=== PATIENT | male | born 1990 | race Caucasian/White ===

== ENCOUNTER 2025-06-26 10:44 | Inpatient (IN) | payer MEDICAID, SELFPAY ==
[2025-06-26] VITALS (26 sets, daily range): BP systolic 115–146; BP diastolic 65–90; PULSE 53–95; RESP 14–41; TEMP 36.1–36.3; O2SAT 93–98; BMI 33.7; BMI 39.0
--- NOTE | ~2025-06-26 | CT_ITS ---
EXAMINATION: CT HEAD WITHOUT CONTRAST CLINICAL INFORMATION: Altered mental status. COMPARISON: None available. TECHNIQUE: Contiguous axial imaging was performed from the skull base to vertex without intravenous administration of contrast. This CT examination was performed using dose optimization techniques as appropriate, variously including the following: *Automated exposure control *Adjustment of mA and/or kV according to patient size (this includes techniques or standardized protocols for targeted exams where dose is matched to indication/reason for exam; i.e. extremities or head) *Use of iterative reconstruction technique FINDINGS: There is no evidence of intracranial hemorrhage or extra-axial fluid collection. There is no mass effect, or edema. No CT evidence of acute territorial infarct. Ventricles, sulci, and cisterns are normal in size and configuration for patient age. No hydrocephalus. No midline shift. Negative hyperdense MCA sign. Negative insular ribbon sign. There are no white matter abnormalities. Globes and orbital contents image normally. No extracranial soft tissue abnormalities. The paranasal sinuses, mastoid air cells, and tympanic cavities are normally aerated. No suspicious bony abnormalities. There are no acute fractures evident. CT/CT head/brain wo IV con IMPRESSION: No acute intracranial abnormality. Electronically signed by: Jay Shaffer MD 06/26/2025 02:41 PM EDT
--- NOTE | 2025-06-26 10:54 | ECG_ITS ---
Test Reason : od Blood Pressure : */* mmHG Vent. Rate : 89 BPM Atrial Rate : 89 BPM P-R Int : 120 ms QRS Dur : 72 ms QT Int : 364 ms P-R-T Axes : 45 72 47 degrees QTcB Int : 442 ms Sinus rhythm with occasional Premature ventricular complexes Nonspecific ST abnormality Abnormal ECG No previous ECGs available Referred By: Riya Still Electronically Signed By: KHARI QUEZADA MD
[2025-06-26] MEDS: OLANZapine 10 MG VIAL IM (10:57)
--- NOTE | 2025-06-26 11:04 | ED.AMS ---
HPI - Altered Mental Status General Chief Complaint: Psychiatric Symptoms Stated Complaint: PSYCH ISSUE,USED NARCS,ERRATIC/AGGRESSIVE PER EMS Time Seen by Provider: 06/26/25 10:48 Source: EMS and police Mode of arrival: EMS Limitations: altered mental status History of Present Illness ED Provider: JUAN AVALOS narrative: Unclear history a bystander saw him acting erratic walking around they called 911 - patient was initially calm then became agitated en route [employer] on scene. He is not providing a history but fighting and screaming. He will not answer questions. There is no obvious trauma on chest /abdomen/ head review of [facility] records show hx of depression, bronchitis, prior hernia repair he has not been seen for any substance abuse issues MD complaint: altered mental status Onset (ago): unknown Severity: severe Consistency of symptoms: unknown Associated symptoms: denies other symptoms Related Data Allergies Allergy/AdvReac Type Severity Reaction Status Date / Time Unable to Assess Allergy Verified 06/26/25 11:15 Review of Systems Review of Systems: ROS unable to be obtained due to altered mental status PMFSH Past Medical History Source: unable to obtain (AMS, agitation) Physical Exam ED Vital Signs: Vital Signs - 24 hr 06/26/25 11:11 06/26/25 14:40 Pulse Rate 93 76 Respiratory Rate 22 H 19 Blood Pressure 124/90 H 132/80 Pulse Oximetry 96 96 Oxygen Delivery Method Room Air Room Air BMI result Body Mass Index 33.7 Appearance: alert not answering questions, yellow out, moderate acute distress. Eyes: Pupils equal, round and reactive to light. ENT: Pharynx normal. atraumatic Neck: Normal inspection. Neck supple. CVS: tachycardic heart rate and rhythm. Pulses normal. Respiratory: Rapid shallow breathing. Breath sounds normal. Abdomen: Soft and nontender. no obvious signs of trauma to chest or abdomen Skin: Skin warm and diaphoretic. Normal skin color. Extremities: No lower extremity edema. No calf ttp Neuro: yelling, moving all extremities, withdrawal and localizing to pain. Course Course Course Narrative: still awake after 7mg versed, 50mg benadryl, 10mg zyprexa he is still awake and fighting I am going to add on droperidol more versed unable to get head CT IV valium ordered attempted to call Saskia listed as next of kin but no response I need a head CT will order IV ketamine as well to obtain imaging and rule out ICH as cause Reevaluation(s) Reevaluation #1: 215pm calm now and sleeping, breathing pattern has changed after IV valium and IV ketamine more calm and cooperative has been out of restraints for an hour 312pm Reevaluation #2: 448pm calm responds to his name when I told him what happened he said okay stable for admit Medications Administered Generic Name Dose Route Start Last Admin Trade Name Freq PRN Reason Stop Dose Admin Sodium Chloride 1,000 mls @ 200 mls/hr 06/26/25 14:00 06/26/25 14:58 Ns IVCONT 06/26/25 18:59 200 mls/hr .Q5H KWABENA Administration Discontinued Medications Generic Name Dose Route Start Last Admin Trade Name Freq PRN Reason Stop Dose Admin Diazepam 5 mg 06/26/25 13:41 06/26/25 13:52 Diazepam 10 Mg/2 Ml Cartridge IVPUSH 06/26/25 13:42 5 mg STAT STA Administration Diphenhydramine HCl 50 mg 06/26/25 11:04 06/26/25 11:05 Diphenhydramine Hcl 50 Mg/Ml Vial IM 06/26/25 11:05 50 mg ONCE ONE Administration Droperidol 1.25 mg 06/26/25 12:06 06/26/25 12:21 Droperidol 5 Mg/2 Ml Vial IVPUSH 06/26/25 12:07 1.25 mg ONCE ONE Administration Lactated Ringer's 1,000 mls @ 999 mls/hr 06/26/25 12:08 06/26/25 13:23 Lr IV 06/26/25 13:08 Infused .Q1H1M ONE Infusion Sodium Chloride 1,000 mls @ 999 mls/hr 06/26/25 13:58 06/26/25 14:58 Ns IV 06/26/25 14:58 999 mls/hr .Q1H1M ONE Administration Ketamine HCl 90 mg 06/26/25 13:46 06/26/25 13:52 Ketamine Hcl/Ns 50 Mg/5 Ml Syringe IVPUSH 06/26/25 13:47 90 mg ONCE ONE Administration Midazolam HCl 5 mg 06/26/25 10:52 06/26/25 10:57 Midazolam Hcl 5 Mg/Ml Vial IM 06/26/25 10:53 5 mg ONCE ONE Administration Midazolam HCl 2 mg 06/26/25 11:36 06/26/25 11:41 Midazolam Hcl 2 Mg/2 Ml Vial IVPUSH 06/26/25 11:37 2 mg ONCE ONE Administration Midazolam HCl 4 mg 06/26/25 12:58 06/26/25 13:06 Midazolam Hcl 2 Mg/2 Ml Vial IVPUSH 06/26/25 12:59 4 mg ONCE ONE Administration Olanzapine 10 mg 06/26/25 10:52 06/26/25 10:57 Olanzapine 10 Mg Vial IM 06/26/25 10:53 10 mg STAT STA Administration Medical Decision Making Medical Decision Making MDM Narrative: 35 yo male with undifferentiated presentation of agitation and aggression on arrival he is fighting and screaming attempting to leave for his and staff safety he had chemical and physical restraints he is going to need labs, EKG, CT head, drug screen and close monitoring will escalate sedation doses Differential Diagnosis Differential Diagnoses: The differential diagnosis associated with the presentation includes ICH, drug abuse, lyte abnormality given breathing we checked BS but it is 72 - DKA seems unlikely Admission/Observation Consideration of admission/observation: Escalation of care including admission/observation considered admit for rhabdo Lab Data [facility] Lab Attestation statement: I reviewed the patient's lab results. VBG improved 06/26/25 11:38 06/26/25 11:38 Labs: Lab Results 06/26/25 06/26/25 06/26/25 Range/Units 11:15 11:38 12:17 WBC 13.6 H (4.8-10.8) X10*3/uL RBC 4.33 L (4.60-5.80) X10*6/uL Hgb 12.8 L (14.0-18.0) g/dl Hct 37.3 L (42.0-52.0) % MCV 86.1 (80.0-98.0) fL MCH 29.6 (27.0-33.0) pg MCHC 34.3 (31.0-36.0) g/dl RDW 15.1 (11.0-16.0) % Plt Count 286 (160-400) X10*3/uL MPV 10.3 (9.4-12.4) fL Immature Gran % (Auto) 0.4 (0.0-0.4) % Neut % (Auto) 62.5 (45-73) % Lymph % (Auto) 23.1 (20-40) % [place] % (Auto) 13.0 H (2-11) % Eos % (Auto) 0.3 (0-4) % Baso % (Auto) 0.7 (0-2) % Lymph # (Auto) 3.1 (1.2-4.9) X10*3/uL [place] # (Auto) 1.8 H (0.1-1.2) X10*3/uL Eos # (Auto) 0.0 (0.0-0.4) X10*3/uL Baso # (Auto) 0.1 (0.0-0.2) X10*3/uL Abs Immat Gran (auto) 0.06 H (0.00-0.03) X10*3/uL Absolute Neuts (auto) 8.5 H (2.0-8.3) x10*3/uL Absolute Nucleated RBC 0.000 (0.0-0.012) X10*3/uL Nucleated RBC % (auto) 0.0 (0.0-0.2) /100WBC Smear Tech's Comments VERIFIED VBG pH 7.60 H* (7.32-7.43) VBG pCO2 20 mmHg VBG pO2 97 mmHg VBG HCO3 20 L (22-26) mmol/L VBG O2 Saturation 99.0 % VBG Base Excess 1.2 mmol/L Sodium 139 (135-145) mmol/L Potassium 4.0 (3.3-5.1) mmol/L Chloride 109 H (96-108) mmol/L Carbon Dioxide 17 L (22-29) mmol/L Anion Gap 17 (12-20) BUN 26 H (9-16) mg/dL Creatinine 0.92 (0.5-1.4) mg/dL Estim Creat Clear Calc 122.3 Estimated GFR > 60 POC Glucose 72 (60-115) mg/dL Random Glucose 75 (60-115) mg/dL Calcium 9.3 (8.4-10.2) mg/dL Magnesium 2.4 (1.6-2.6) mg/dL Total Bilirubin 0.7 (0.0-1.0) mg/dL Direct Bilirubin 0.3 (0.0-0.5) mg/dL AST 177 H (5-37) U/L ALT 127 H (0-40) U/L Alkaline Phosphatase 80 (39-117) U/L Total Creatine Kinase 9536 H (38-174) U/L Total Protein 7.7 (6.5-8.0) g/dL Albumin 4.7 (3.5-5.0) g/dL Urine Color Urine Appearance Urine pH (5.0-9.0) Ur Specific [place] (1.005-1.025) Urine Protein (Neg-Trace) mg/dL Urine Glucose (UA) (Negative) mg/dL Urine Ketones (Negative) mg/dL Urine Blood (Negative) Urine Nitrite (Negative) Ur Leukocyte Esterase (Negative) Urine RBC (0-2) /HPF Urine WBC (0-5) /HPF Ur Squamous Epith Cells (0-2) /HPF Urine Bacteria (None Seen) Hyaline Casts (0-2) /LPF Salicylates < 5.0 L (15-30) mg/dL Urine Opiates Screen (Not Detect) Ur Buprenorphine Scrn (Not Detect) ng/mL Ur Oxycodone Screen (Not Detect) ng/mL Urine Methadone Screen (Not Detect) ng/mL Urine Fentanyl Screen (Not Detect) Acetaminophen < 3 (<30) mcg/mL Ur Barbiturates Screen (Not Detect) Ur Phencyclidine Scrn (Not Detect) Ur Amphetamines Screen (Not Detect) U Benzodiazepines Scrn (Not Detect) Urine Cocaine Screen (Not Detect) U Marijuana (THC) Screen (Not Detect) Ethyl Alcohol < 10 mg/dL 06/26/25 06/26/25 06/26/25 Range/Units 14:32 14:39 14:59 WBC (4.8-10.8) X10*3/uL RBC (4.60-5.80) X10*6/uL Hgb (14.0-18.0) g/dl Hct (42.0-52.0) % MCV (80.0-98.0) fL MCH (27.0-33.0) pg MCHC (31.0-36.0) g/dl RDW (11.0-16.0) % Plt Count (160-400) X10*3/uL MPV (9.4-12.4) fL Immature Gran % (Auto) (0.0-0.4) % Neut % (Auto) (45-73) % Lymph % (Auto) (20-40) % [place] % (Auto) (2-11) % Eos % (Auto) (0-4) % Baso % (Auto) (0-2) % Lymph # (Auto) (1.2-4.9) X10*3/uL [place] # (Auto) (0.1-1.2) X10*3/uL Eos # (Auto) (0.0-0.4) X10*3/uL Baso # (Auto) (0.0-0.2) X10*3/uL Abs Immat Gran (auto) (0.00-0.03) X10*3/uL Absolute Neuts (auto) (2.0-8.3) x10*3/uL Absolute Nucleated RBC (0.0-0.012) X10*3/uL Nucleated RBC % (auto) (0.0-0.2) /100WBC Smear Tech's Comments VBG pH 7.47 H (7.32-7.43) VBG pCO2 29 mmHg VBG pO2 190 mmHg VBG HCO3 21 L (22-26) mmol/L VBG O2 Saturation 99.0 % VBG Base Excess -0.6 mmol/L Sodium (135-145) mmol/L Potassium (3.3-5.1) mmol/L Chloride (96-108) mmol/L Carbon Dioxide (22-29) mmol/L Anion Gap (12-20) BUN (9-16) mg/dL Creatinine (0.5-1.4) mg/dL Estim Creat Clear Calc Estimated GFR POC Glucose (60-115) mg/dL Random Glucose (60-115) mg/dL Calcium (8.4-10.2) mg/dL Magnesium (1.6-2.6) mg/dL Total Bilirubin (0.0-1.0) mg/dL Direct Bilirubin (0.0-0.5) mg/dL AST (5-37) U/L ALT (0-40) U/L Alkaline Phosphatase (39-117) U/L Total Creatine Kinase (38-174) U/L Total Protein (6.5-8.0) g/dL Albumin (3.5-5.0) g/dL Urine Color Yellow Urine Appearance Clear Urine pH 5.5 (5.0-9.0) Ur Specific [place] >= 1.030 H (1.005-1.025) Urine Protein 30 (1+) H (Neg-Trace) mg/dL Urine Glucose (UA) Negative (Negative) mg/dL Urine Ketones 15 (Negative) mg/dL Urine Blood Trace H (Negative) Urine Nitrite Negative (Negative) Ur Leukocyte Esterase Negative (Negative) Urine RBC 0-2 (0-2) /HPF Urine WBC 0-5 (0-5) /HPF Ur Squamous Epith Cells 0-2 (0-2) /HPF Urine Bacteria None Seen (None Seen) Hyaline Casts 0-2 (0-2) /LPF Salicylates (15-30) mg/dL Urine Opiates Screen POSITIVE H (Not Detect) Ur Buprenorphine Scrn Not Detected (Not Detect) ng/mL Ur Oxycodone Screen Not Detected (Not Detect) ng/mL Urine Methadone Screen Positive H (Not Detect) ng/mL Urine Fentanyl Screen POSITIVE H (Not Detect) Acetaminophen (<30) mcg/mL Ur Barbiturates Screen Not Detected (Not Detect) Ur Phencyclidine Scrn Not Detected (Not Detect) Ur Amphetamines Screen Not Detected (Not Detect) U Benzodiazepines Scrn POSITIVE H (Not Detect) Urine Cocaine Screen POSITIVE H (Not Detect) U Marijuana (THC) Screen POSITIVE H (Not Detect) Ethyl Alcohol mg/dL Independent Interpretation I performed an independent interpretation of an: EKG and CT Scan (no ICH) Interpretation: Rate: 89 Rhythm: NSR [place]: normal Normal P waves. Normal MARK. Normal QRS complex. ST T wave : artifact, normal no FERCHO qTC: 442 prior studies: none The study has been interpreted contemporaneously by me. . Radiology Impression Discussion of test interpretation with radiology: I have reviewed the radiologist's reading. Independent Historian Clinical information obtained from an independent historian. History obtained from or confirmed by: EMS and Other (police) Critical Care Time Critical Care Time Critical Care Time: Yes Total Critical Care Time: 60 Attestation: Time is exclusive of separately billable procedures. Time includes: direct patient care, patient reassessment, coordination of patient care, interpretation of data (laboratory data, pulse oximetry, venous blood gases and CT scans), review of patient's medical records, medical consultation and documentation of patient care. IVF x 2L, repeat labs, numerous IV and IM medications for agitation. Procedures excluded from critical care time: central intravenous line placement and electrocardiography. Discharge Plan Discharge Clinical Impression: Polysubstance abuse, Restlessness and agitation Rhabdomyolysis Qualifiers: Rhabdomyolysis type: non-traumatic Qualified Code(s): M62.82 - Rhabdomyolysis Patient Disposition: Admitted As Inpatient Print Language: Unknown
[2025-06-26 11:20] LABS: Glucose, Whole Blood 72 mg/dL (60-115)
[2025-06-26 11:47] LABS: Hematocrit 37.3 % (42.0-52.0); Hemoglobin 12.8 g/dl (14.0-18.0); Imm Gran Abs Auto 0.06 X10*3/uL (0.00-0.03); Imm Gran Pct Auto 0.4 % (0.0-0.4); Lymphocytes Absolute Auto 3.1 X10*3/uL (1.2-4.9); MANUAL DIFF FLAG SCAN; Mean Corpuscular HGB Conc 34.3 g/dl (31.0-36.0); Mean Corpuscular Hemoglobin 29.6 pg (27.0-33.0); Mean Corpuscular Volume 86.1 fL (80.0-98.0); NRBC Abs Auto 0.000 X10*3/uL (0.0-0.012); NRBC Pct Auto 0.0 /100WBC (0.0-0.2); Platelet Count 286 X10*3/uL (160-400); Red Blood Count 4.33 X10*6/uL (4.60-5.80); SCAN SMEAR FLAG 1; White Blood Count 13.6 X10*3/uL (4.8-10.8)
[2025-06-26 12:04] LABS: Acetaminophen LAB < 3 mcg/mL (<30); Alanine Aminotransferase 127 U/L (0-40); Albumin Level 4.7 g/dL (3.5-5.0); Alkaline Phosphatase 80 U/L (39-117); Anion Gap 17 (12-20); Aspartate Amino Transferase 177 U/L (5-37); Blood Urea Nitrogen 26 mg/dL (9-16); Calcium 9.3 mg/dL (8.4-10.2); Carbon Dioxide 17 mmol/L (22-29); Chloride 109 mmol/L (96-108); Creatinine Clr Calc Pharmacy 122.3; Estimated Glomerular Filt Rate > 60; Magnesium 2.4 mg/dL (1.6-2.6); Potassium 4.0 mmol/L (3.3-5.1); Salicylate < 5.0 mg/dL (15-30); Sodium 139 mmol/L (135-145); Total Protein 7.7 g/dL (6.5-8.0)
[2025-06-26] MEDS: Lactated Ringers 1,000 ML 999 ML IV (12:22)
[2025-06-26 12:31] LABS: Venous Blood Gas Refer to POC result
--- NOTE | 2025-06-26 12:33 | PC.NURSE ---
Moved from 6 [address] to room 6. Placed on continuous cardiac monitoring. Diaphoretic, tachypnic, thrashing. Remains in 4 point restraints and received IM medications (see EMAR). Care ongoing by this RN.
[2025-06-26 12:34] LABS: VBG HCO3 20 mmol/L (22-26); VBG O2 % Saturation 99.0 %
[2025-06-26] MEDS: diazePAM 10 MG/2 ML CARTRIDGE 5 MG IVPUSH (13:52)
[2025-06-26] MEDS: Ketamine HCl/NS 50 MG/5 ML SYRINGE 90 MG IVPUSH (13:52)
[2025-06-26 14:47] LABS: Appearance Urine Clear; Glucose Urine UA Negative (Negative); PH 5.5 (5.0-9.0); Specific Gravity - Urine >= 1.030 (1.005-1.025); UMIC TRIGGER UACC YES
[2025-06-26 15:02] LABS: Venous Blood Gas Refer to POC result
[2025-06-26 15:03] LABS: VBG HCO3 21 mmol/L (22-26); VBG O2 % Saturation 99.0 %
[2025-06-26 15:07] LABS: Cannabinoid Screen Urine POSITIVE (Not Detect)
--- NOTE | 2025-06-26 16:54 | P.HPHOSP_ITS ---
History of Present Illness Date of Service: 06/26/25 Chief Complaint: Agitation 85-year-old man brought to the ER due to erratic behavior likely from drug use. Apparently a bystander saw him acting erratic and patient was picked up by the [place] police Department. In the ER patient was quite agitated screaming kicking. CPK greater than 9000, head CT negative for acute abnormality, UA negative, mild leukocytosis. Plan is to admit patient for further management treatment of rhabdomyolysis Review of Systems 2 Review of Systems: Denies any recent fever chills or decrease in appetite respiratory denies any shortness of breath coverage production cardiovascular is adjustment of any PND or edema gastrointestinal denies any dysphagia abdominal pain nausea vomiting or diarrhea genitourinary denies any dysuria frequency or hematuria musculoskeletal denies any joint pain or swelling neuropsych denies any weakness or seizures all other systems reviewed are negative [facility] Social History Household Members: None Housing: Unknown / Unable to assess Comment: sitter Patient Tobacco Use Status: Tobacco use Unknown Currently Displaying Signs/Symptoms of Drug Intoxication Withdrawal: No Advance Directives: No Advance Directives Information Provided: No Do you have a plan to hurt others: No Plan Recently lost weight without trying: Unsure Nutrition Risks: No Nutritional Risk Meds Allergies Allergy/AdvReac Type Severity Reaction Status Date / Time Unable to Assess Allergy Verified 06/26/25 11:15 Active Medications: Current Medications Sodium Chloride (Ns) 1,000 mls @ 200 mls/hr IVCONT .Q5H KWABENA Stop: 06/26/25 18:59 Last Admin: 06/26/25 14:58 Dose: 200 mls/hr Home Medications ?Medication ?Instructions ?Recorded ?Confirmed ?Last Taken ?Type albuterol sulfate 90 mcg/actuation 2 puff inhalation Q 6H PRN 06/26/25 06/26/25 Unknown History aerosol inhaler (Ventolin HFA) Shortness Of Breath Or Wheezing escitalopram oxalate 10 mg tablet 10 mg PO DAILY 06/2606/26/25 Unknown History Physical Exam 2 Vital Signs and Narrative: Vital Signs: Last Vital Signs Pulse 76 06/26/25 14:40 Resp 19 06/26/25 14:40 BP 132/80 06/26/25 14:40 Pulse Ox 96 06/26/25 14:40 O2 Del Method Room Air 06/26/25 14:40 BMI result Body Mass Index 33.7 Appearing in no acute distress head is normocephalic atraumatic eyes pupils are PERRLA sclera is anicteric mouth throat mucous membranes are intact and moist neck is supple no lymphadenopathy, no JVD noted lung sounds are clear to auscultation heart regular rate rhythm, clear S1, S2 positive bowel sounds, abdomen is soft, nontender neuro patient is alert x3, no focal deficits Results Labs 06/26/25 11:38 06/26/25 11:38 Labs: Laboratory Results - last 24 hr 06/26/25 06/26/25 06/26/25 11:15 11:38 12:17 MCV 86.1 MCH 29.6 MCHC 34.3 RDW 15.1 Plt Count 286 MPV 10.3 Immature Gran % (Auto) 0.4 Neut % (Auto) 62.5 Lymph % (Auto) 23.1 [place] % (Auto) 13.0 H Eos % (Auto) 0.3 Baso % (Auto) 0.7 Lymph # (Auto) 3.1 [place] # (Auto) 1.8 H Eos # (Auto) 0.0 Baso # (Auto) 0.1 Abs Immat Gran (auto) 0.06 H Absolute Neuts (auto) 8.5 H Absolute Nucleated RBC 0.000 Nucleated RBC % (auto) 0.0 Smear Tech's Comments VERIFIED VBG pH 7.60 H* VBG pCO2 20 VBG pO2 97 VBG HCO3 20 L VBG O2 Saturation 99.0 VBG Base Excess 1.2 Anion Gap 17 Estim Creat Clear Calc 122.3 Estimated GFR > 60 POC Glucose 72 Random Glucose 75 Calcium 9.3 Magnesium 2.4 Total Bilirubin 0.7 Direct Bilirubin 0.3 AST 177 H ALT 127 H Alkaline Phosphatase 80 Total Creatine Kinase 9536 H Total Protein 7.7 Albumin 4.7 Urine Color Urine Appearance Urine pH Ur Specific [place] Urine Protein Urine Glucose (UA) Urine Ketones Urine Blood Urine Nitrite Ur Leukocyte Esterase Urine RBC Urine WBC Ur Squamous Epith Cells Urine Bacteria Hyaline Casts Salicylates < 5.0 L Urine Opiates Screen Ur Buprenorphine Scrn Ur Oxycodone Screen Urine Methadone Screen Urine Fentanyl Screen Acetaminophen < 3 Ur Barbiturates Screen Ur Phencyclidine Scrn Ur Amphetamines Screen U Benzodiazepines Scrn Urine Cocaine Screen U Marijuana (THC) Screen Ethyl Alcohol < 10 06/26/25 06/26/25 06/26/25 14:32 14:39 14:59 MCV MCH MCHC RDW Plt Count MPV Immature Gran % (Auto) Neut % (Auto) Lymph % (Auto) [place] % (Auto) Eos % (Auto) Baso % (Auto) Lymph # (Auto) [place] # (Auto) Eos # (Auto) Baso # (Auto) Abs Immat Gran (auto) Absolute Neuts (auto) Absolute Nucleated RBC Nucleated RBC % (auto) Smear Tech's Comments VBG pH 7.47 H VBG pCO2 29 VBG pO2 190 VBG HCO3 21 L VBG O2 Saturation 99.0 VBG Base Excess -0.6 Anion Gap Estim Creat Clear Calc Estimated GFR POC Glucose Random Glucose Calcium Magnesium Total Bilirubin Direct Bilirubin AST ALT Alkaline Phosphatase Total Creatine Kinase Total Protein Albumin Urine Color Yellow Urine Appearance Clear Urine pH 5.5 Ur Specific [place] >= 1.030 H Urine Protein 30 (1+) H Urine Glucose (UA) Negative Urine Ketones 15 Urine Blood Trace H Urine Nitrite Negative Ur Leukocyte Esterase Negative Urine RBC 0-2 Urine WBC 0-5 Ur Squamous Epith Cells 0-2 Urine Bacteria None Seen Hyaline Casts 0-2 Salicylates Urine Opiates Screen POSITIVE H Ur Buprenorphine Scrn Not Detected Ur Oxycodone Screen Not Detected Urine Methadone Screen Positive H Urine Fentanyl Screen POSITIVE H Acetaminophen Ur Barbiturates Screen Not Detected Ur Phencyclidine Scrn Not Detected Ur Amphetamines Screen Not Detected U Benzodiazepines Scrn POSITIVE H Urine Cocaine Screen POSITIVE H U Marijuana (THC) Screen POSITIVE H Ethyl Alcohol Imaging Radiologist's Impressions: Impressions Head CT 06/26/25 14:08 IMPRESSION: No acute intracranial abnormality. Electronically signed by: Jay Shaffer MD 06/26/2025 02:41 PM EDT Assessment and Plan (1) Polysubstance abuse: Status: Acute (2) Rhabdomyolysis: Qualifiers: Rhabdomyolysis type: non-traumatic Qualified Code(s): M62.82 - Rhabdomyolysis Status: Acute Plan 35 year old man admitted with rhabdomyolysis likely secondary to severe agitation from drug use Rhabdomyolysis Secondary to severe agitation CPK 9536 Normal kidney function IV fluids Severe agitation from drug use Calmer now Negative head CT Addiction team consultation Leukocytosis No signs of infection Likely secondary to agitation and drug use DVT prophylaxis with Lovenox Full code Quality Stroke Does the patient have a stroke diagnosis?: No VTE Prior VTE?: No VTE Risk Level:: Medical - moderate - high VTE Device Contraindication: Treatment Not Indicated VTE Drug Contraindication: N/A - Med Ordered
--- NOTE | 2025-06-26 18:00 | PC.NURSE ---
Per Becca Amaya NP, Lactated Ringers infusion to be initiated upon completion of NS 0.9% which is currently infusing at 200ml/hour. Patient sleeping at this time, vitals remain stable. Care ongoing by this RN.
[2025-06-26] MEDS: Lactated Ringers 1,000 ML 150 ML IVCONT (20:20)
--- NOTE | 2025-06-26 20:39 | PHA.MEDREC ---
Pharmacy Consult ? Medication Reconciliation Pharmacy has completed the medication reconciliation.Unable to wake up patient, claim history utilized for [employer] rec
--- NOTE | 2025-06-26 21:00 | PC.NURSE ---
2100: Pt brought up to floor in a stretcher, pt found to be sound asleep, respirations even and non-labored, in no apparent distress at this time. Pt asked to slide over onto the bed, and was able to do so with no issues, and went right back to sleep. In ED pt was agitated and thrashing around and needed to be restrained and medicated, no restraints on at this time. pt was straight cathed in ED, for 300ml, bladder scanned upon admission to the floor for 378, per Dr. Ramirez orders to wait to see if patient voids, will re-bladder scan around 0200, and reassess. Pt has been encouraged to try to void, but just mumbles back at this RN, and goes back to sleep. pt refused to answer admission questions, so this RN attempted the admission worksheet the best of my ability. Per provider in the ED no history of substance use. pt sedated, and lethargy, mumbles when speaking, lung sounds are clear, BSx4, reports pain generalized, skin appears to be intact. Sitter at the bedside for safety purposes. Call joy within reach, bed in lowest position, bed alarm on.
[2025-06-27] MEDS: Lactated Ringers 1,000 ML 150 ML IVCONT ×3 (02:40→15:57)
[2025-06-27 03:22] VITALS: BP 125/72; PULSE 60; RESP 16; TEMP 36.1; O2SAT 96
[2025-06-27 08:00] VITALS: BP 112/72; PULSE 78; RESP 16; TEMP 36.2; O2SAT 99
--- NOTE | 2025-06-27 09:26 | HO.ADDICT_ITS ---
History of Present Illness Date of Service: 06/27/2025 Chief Complaint: Rhabdomyolysis Reason for Consult: substance use Sources of Information: patient interviewed and chart reviewed HPI Narrative: Patient is a 35 year old Vietnamese speaking male who presented to [facility] via ambulance after being found acting erratic --yelling in the streets. Once in ED, patient was extrememly agitated, not making sense, unable to follow commands. Required multiple medications to settle. Head CT negatvie. UDS +fentanyl, cocaine, THC and methadone Medical admission for rhabdomyolysis Patient seen in room 364. He is asleep upon approach, but easily wakes. He has no recollection of what occurred, just that he was in a bar with a friend, then woke up here. He states that he was incarcerated at [facility] for 8 months, and released on Thursday, 06/23. He reports being prescribed methadone, last dose in assisted. He believed he was connected to an OTP in [place], however [facility] has no record of patient. He denies withdrawal sx, but reports that his whole body and muscles hurt. He did not appear diaphoretic or restless. During interview patient stated that name on his band is not his name. He provided his name and ---information verified by supervisor case loading at the [facility]. Patient was confirmed to have been there until 06/23. Last dose of methadone 06/23 80mg. medication list obtained from [facility] as well, attending updated. Labs reviewed Medical Evaluation Reviewed: Yes Review of Systems Constitutional: Reports as per HPI Diagnostics Vital Signs (24Hr): Vital Signs - 24 hr 06/26/25 11:11 06/26/25 13:02 06/26/25 13:32 Temperature Pulse Rate 93 95 90 Respiratory Rate 22 H 34 H 41 H Blood Pressure 124/90 H 135/65 136/70 Pulse Oximetry 96 98 98 Oxygen Delivery Method Room Air Room Air Room Air 06/26/25 13:45 06/26/25 13:59 06/26/25 14:37 Temperature Pulse Rate 91 75 77 Respiratory Rate 36 H 36 H 15 Blood Pressure 144/73 H 146/82 H 132/80 Pulse Oximetry 98 97 95 Oxygen Delivery Method Room Air Room Air Room Air 06/26/25 14:40 06/26/25 14:44 06/26/25 14:59 Temperature 97.3 F Pulse Rate 76 75 74 Respiratory Rate 19 14 29 H Blood Pressure 132/80 127/73 119/72 Pulse Oximetry 96 95 95 Oxygen Delivery Method Room Air Room Air Room Air 06/26/25 15:14 06/26/25 15:29 06/26/25 15:44 Temperature Pulse Rate 74 73 73 Respiratory Rate 17 23 H 29 H Blood Pressure 120/76 126/76 120/74 Pulse Oximetry 94 95 94 Oxygen Delivery Method Room Air Room Air Room Air 06/26/25 15:59 06/26/25 16:14 06/26/25 16:29 Temperature Pulse Rate 73 71 71 Respiratory Rate 25 H 25 H 23 H Blood Pressure 126/69 125/72 119/74 Pulse Oximetry 94 94 94 Oxygen Delivery Method Room Air Room Air Room Air 06/26/25 16:44 06/26/25 16:59 06/26/25 17:14 Temperature Pulse Rate 69 70 65 Respiratory Rate 23 H 22 H 22 H Blood Pressure 120/73 124/74 127/76 Pulse Oximetry 95 94 93 Oxygen Delivery Method Room Air Room Air Room Air 06/26/25 17:29 06/26/25 17:44 06/26/25 17:59 Temperature Pulse Rate 64 66 63 Respiratory Rate 19 20 24 H Blood Pressure 120/77 124/77 119/73 Pulse Oximetry 94 94 94 Oxygen Delivery Method Room Air Room Air Room Air 06/26/25 18:14 06/26/25 18:29 06/26/25 18:44 Temperature Pulse Rate 64 64 62 Respiratory Rate 20 20 19 Blood Pressure 120/74 115/72 118/74 Pulse Oximetry 96 96 94 Oxygen Delivery Method Room Air Room Air Room Air 06/26/25 18:59 06/26/25 20:00 06/27/25 03:22 Temperature 97.0 F 97.0 F Pulse Rate 63 53 60 Respiratory Rate 17 17 16 Blood Pressure 116/75 122/74 125/72 Pulse Oximetry 96 97 96 Oxygen Delivery Method Room Air Room Air Room Air 06/27/25 08:00 Temperature 97.2 F Pulse Rate 78 Respiratory Rate 16 Blood Pressure 112/72 Pulse Oximetry 99 Oxygen Delivery Method Room Air BMI result Body Mass Index 39.0 Labs 06/27/25 10:51 06/27/25 08:48 Labs: Laboratory Results - last 48 hr 06/26/25 06/26/25 06/26/25 11:15 11:38 12:17 WBC 13.6 H RBC 4.33 L Hgb 12.8 L Hct 37.3 L MCV 86.1 MCH 29.6 MCHC 34.3 RDW 15.1 Plt Count 286 MPV 10.3 Immature Gran % (Auto) 0.4 Neut % (Auto) 62.5 Lymph % (Auto) 23.1 [place] % (Auto) 13.0 H Eos % (Auto) 0.3 Baso % (Auto) 0.7 Lymph # (Auto) 3.1 [place] # (Auto) 1.8 H Eos # (Auto) 0.0 Baso # (Auto) 0.1 Abs Immat Gran (auto) 0.06 H Absolute Neuts (auto) 8.5 H Absolute Nucleated RBC 0.000 Nucleated RBC % (auto) 0.0 Smear Tech's Comments VERIFIED VBG pH 7.60 H* VBG pCO2 20 VBG pO2 97 VBG HCO3 20 L VBG O2 Saturation 99.0 VBG Base Excess 1.2 Sodium 139 Potassium 4.0 Chloride 109 H Carbon Dioxide 17 L Anion Gap 17 BUN 26 H Creatinine 0.92 Estim Creat Clear Calc 122.3 Estimated GFR > 60 POC Glucose 72 Random Glucose 75 Calcium 9.3 Magnesium 2.4 Total Bilirubin 0.7 Direct Bilirubin 0.3 AST 177 H ALT 127 H Alkaline Phosphatase 80 Total Creatine Kinase 9536 H Total Protein 7.7 Albumin 4.7 Urine Color Urine Appearance Urine pH Ur Specific [place] Urine Protein Urine Glucose (UA) Urine Ketones Urine Blood Urine Nitrite Ur Leukocyte Esterase Urine RBC Urine WBC Ur Squamous Epith Cells Urine Bacteria Hyaline Casts Salicylates < 5.0 L Urine Opiates Screen Ur Buprenorphine Scrn Ur Oxycodone Screen Urine Methadone Screen Urine Fentanyl Screen Acetaminophen < 3 Ur Barbiturates Screen Ur Phencyclidine Scrn Ur Amphetamines Screen U Benzodiazepines Scrn Urine Cocaine Screen U Marijuana (THC) Screen Ethyl Alcohol < 10 06/26/25 06/26/25 06/26/25 14:32 14:39 14:59 WBC RBC Hgb Hct MCV MCH MCHC RDW Plt Count MPV Immature Gran % (Auto) Neut % (Auto) Lymph % (Auto) [place] % (Auto) Eos % (Auto) Baso % (Auto) Lymph # (Auto) [place] # (Auto) Eos # (Auto) Baso # (Auto) Abs Immat Gran (auto) Absolute Neuts (auto) Absolute Nucleated RBC Nucleated RBC % (auto) Smear Tech's Comments VBG pH 7.47 H VBG pCO2 29 VBG pO2 190 VBG HCO3 21 L VBG O2 Saturation 99.0 VBG Base Excess -0.6 Sodium Potassium Chloride Carbon Dioxide Anion Gap BUN Creatinine Estim Creat Clear Calc Estimated GFR POC Glucose Random Glucose Calcium Magnesium Total Bilirubin Direct Bilirubin AST ALT Alkaline Phosphatase Total Creatine Kinase Total Protein Albumin Urine Color Yellow Urine Appearance Clear Urine pH 5.5 Ur Specific [place] >= 1.030 H Urine Protein 30 (1+) H Urine Glucose (UA) Negative Urine Ketones 15 Urine Blood Trace H Urine Nitrite Negative Ur Leukocyte Esterase Negative Urine RBC 0-2 Urine WBC 0-5 Ur Squamous Epith Cells 0-2 Urine Bacteria None Seen Hyaline Casts 0-2 Salicylates Urine Opiates Screen POSITIVE H Ur Buprenorphine Scrn Not Detected Ur Oxycodone Screen Not Detected Urine Methadone Screen Positive H Urine Fentanyl Screen POSITIVE H Acetaminophen Ur Barbiturates Screen Not Detected Ur Phencyclidine Scrn Not Detected Ur Amphetamines Screen Not Detected U Benzodiazepines Scrn POSITIVE H Urine Cocaine Screen POSITIVE H U Marijuana (THC) Screen POSITIVE H Ethyl Alcohol Imaging Radiology Impressions: ITS Impressions Head CT 06/26/25 14:08 IMPRESSION: No acute intracranial abnormality. Electronically signed by: Jay Shaffer MD 06/26/2025 02:41 PM EDT RP Mental Status Exam Mental Status Exam Level of Consciousness: Drowsy Patient Behavior: Appropriate Affect Description: Calm Speech Pattern: Clear Thought Process: Intact Thought Content: positive for Intact Judgement: Good Medications Medications Current Medications Acetaminophen (Acetaminophen 325 Mg Tablet) 650 mg PO Q6H PRN PRN Reason: Pain, Mild 1-3,fever,headache Calcium Carbonate (Calcium Carbonate 750 Mg Tab.Chew) 750 mg PO Q4H PRN PRN Reason: Heartburn Enoxaparin Sodium (Enoxaparin Sodium 40 Mg/0.4 Ml Syringe) 40 mg SUBCUT Q24H [facility] Last Admin: 06/26/25 18:53 Dose: 40 mg Lactated Ringer's (Lr) 1,000 mls @ 150 mls/hr IVCONT .Q6H40M [facility] Last Admin: 06/27/25 04:17 Dose: Not Given Magnesium Hydroxide (Milk Of Magnesia 30 Ml Oral.Susp) 30 ml PO DAILY PRN PRN Reason: Constipation Melatonin (Melatonin 3 Mg Tablet) 6 mg PO BEDTIME PRN PRN Reason: Insomnia Ondansetron HCl (Ondansetron Hcl 4 Mg/2 Ml Vial) 4 mg IVPUSH Q8H PRN PRN Reason: Nausea and Vomiting Sodium Chloride (0.9 % Sodium Chloride Flush 3 Ml Syringe) 3 ml IVFLUSH QSHIFT KWABENA Last Admin: 06/27/25 00:00 Dose: 3 ml Allergies Allergies Allergy/AdvReac Type Severity Reaction Status Date / Time Unable to Assess Allergy Verified 06/26/25 11:15 Assessment & Plan Assessment & Plan (1) Opioid use disorder: Status: Acute Code(s): F11.90 - Opioid use, unspecified, uncomplicated Assessment and Plan: * methadone dose confirmed 80mg --will resume once patient is awake and alert * will need referral to OTP--to be completed by supervisor case loading (2) Rhabdomyolysis: Qualifiers: Rhabdomyolysis type: non-traumatic Qualified Code(s): M62.82 - Rhabdomyolysis Status: Acute Code(s): M62.82 - Rhabdomyolysis Assessment and Plan: * CPK trending down * agitation resolved--does not recall what he may have taken prior to coming to ED Total time managing care of this patient today ____ minutes. PMFSH Social History Social History Household Members: None Housing: Unknown / Unable to assess Comment: 1:1 sitter Patient Tobacco Use Status: Tobacco use Unknown Currently Displaying Signs/Symptoms of Drug Intoxication Withdrawal: No Advance Directives: No Advance Directives Information Provided: No Do you have a plan to hurt others: No Plan Recently lost weight without trying: Unsure Nutrition Risks: No Nutritional Risk
[2025-06-27] MEDS: 0.9 % Sodium Chloride Flush 3 ML SYRINGE IVFLUSH ×2 (09:40)
--- NOTE | 2025-06-27 09:51 | P.PNIM_ITS ---
Subjective Subjective Date of Service: 06/27/25 Review of Systems Follow up encephalopathy, rhabdomyolysis More awake and aware today Physical Exam 2 Exam: Exam: Appearing in no acute distress lung sounds are clear to auscultation heart regular rate rhythm, clear S1, S2 positive bowel sounds, abdomen is soft, nontender neuro patient is alert x3, no focal deficits Vital Signs: Vital Signs: Last Vital Signs Temp 97.2 F 06/27/25 08:00 Pulse 78 06/27/25 08:00 Resp 16 06/27/25 08:00 BP 112/72 06/27/25 08:00 Pulse Ox 99 06/27/25 08:00 O2 Del Method Room Air 06/27/25 08:00 BMI result Body Mass Index 39.0 Objective Data Active Medications Acetaminophen (Acetaminophen 325 Mg Tablet) 650 mg PO Q6H PRN PRN Reason: Pain, Mild 1-3,fever,headache Calcium Carbonate (Calcium Carbonate 750 Mg Tab.Chew) 750 mg PO Q4H PRN PRN Reason: Heartburn Enoxaparin Sodium (Enoxaparin Sodium 40 Mg/0.4 Ml Syringe) 40 mg SUBCUT Q24H [facility] Last Admin: 06/26/25 18:53 Dose: 40 mg Documented By: BINTA Lactated Ringer's (Lr) 1,000 mls @ 150 mls/hr IVCONT .Q6H40M [facility] Last Admin: 06/27/25 09:34 Dose: 150 mls/hr Documented By: JESU Magnesium Hydroxide (Milk Of Magnesia 30 Ml Oral.Susp) 30 ml PO DAILY PRN PRN Reason: Constipation Melatonin (Melatonin 3 Mg Tablet) 6 mg PO BEDTIME PRN PRN Reason: Insomnia Ondansetron HCl (Ondansetron Hcl 4 Mg/2 Ml Vial) 4 mg IVPUSH Q8H PRN PRN Reason: Nausea and Vomiting Sodium Chloride (0.9 % Sodium Chloride Flush 3 Ml Syringe) 3 ml IVFLUSH QSHIFT [facility] Last Admin: 06/27/25 09:40 Dose: 3 ml Documented By: JESU Labs 06/26/25 11:38 06/27/25 08:48 Labs: Laboratory Results - last 24 hr 06/26/25 06/26/25 06/26/25 11:15 11:38 12:17 MCV 86.1 MCH 29.6 MCHC 34.3 RDW 15.1 Plt Count 286 MPV 10.3 Immature Gran % (Auto) 0.4 Neut % (Auto) 62.5 Lymph % (Auto) 23.1 [place] % (Auto) 13.0 H Eos % (Auto) 0.3 Baso % (Auto) 0.7 Lymph # (Auto) 3.1 [place] # (Auto) 1.8 H Eos # (Auto) 0.0 Baso # (Auto) 0.1 Abs Immat Gran (auto) 0.06 H Absolute Neuts (auto) 8.5 H Absolute Nucleated RBC 0.000 Nucleated RBC % (auto) 0.0 Smear Tech's Comments VERIFIED VBG pH 7.60 H* VBG pCO2 20 VBG pO2 97 VBG HCO3 20 L VBG O2 Saturation 99.0 VBG Base Excess 1.2 Anion Gap 17 Estim Creat Clear Calc 122.3 Estimated GFR > 60 POC Glucose 72 Random Glucose 75 Calcium 9.3 Magnesium 2.4 Total Bilirubin 0.7 Direct Bilirubin 0.3 AST 177 H ALT 127 H Alkaline Phosphatase 80 Total Creatine Kinase 9536 H Total Protein 7.7 Albumin 4.7 Urine Color Urine Appearance Urine pH Ur Specific [place] Urine Protein Urine Glucose (UA) Urine Ketones Urine Blood Urine Nitrite Ur Leukocyte Esterase Urine RBC Urine WBC Ur Squamous Epith Cells Urine Bacteria Hyaline Casts Salicylates < 5.0 L Urine Opiates Screen Ur Buprenorphine Scrn Ur Oxycodone Screen Urine Methadone Screen Urine Fentanyl Screen Acetaminophen < 3 Ur Barbiturates Screen Ur Phencyclidine Scrn Ur Amphetamines Screen U Benzodiazepines Scrn Urine Cocaine Screen U Marijuana (THC) Screen Ethyl Alcohol < 10 06/26/25 06/26/25 06/26/25 14:32 14:39 14:59 MCV MCH MCHC RDW Plt Count MPV Immature Gran % (Auto) Neut % (Auto) Lymph % (Auto) [place] % (Auto) Eos % (Auto) Baso % (Auto) Lymph # (Auto) [place] # (Auto) Eos # (Auto) Baso # (Auto) Abs Immat Gran (auto) Absolute Neuts (auto) Absolute Nucleated RBC Nucleated RBC % (auto) Smear Tech's Comments VBG pH 7.47 H VBG pCO2 29 VBG pO2 190 VBG HCO3 21 L VBG O2 Saturation 99.0 VBG Base Excess -0.6 Anion Gap Estim Creat Clear Calc Estimated GFR POC Glucose Random Glucose Calcium Magnesium Total Bilirubin Direct Bilirubin AST ALT Alkaline Phosphatase Total Creatine Kinase Total Protein Albumin Urine Color Yellow Urine Appearance Clear Urine pH 5.5 Ur Specific [place] >= 1.030 H Urine Protein 30 (1+) H Urine Glucose (UA) Negative Urine Ketones 15 Urine Blood Trace H Urine Nitrite Negative Ur Leukocyte Esterase Negative Urine RBC 0-2 Urine WBC 0-5 Ur Squamous Epith Cells 0-2 Urine Bacteria None Seen Hyaline Casts 0-2 Salicylates Urine Opiates Screen POSITIVE H Ur Buprenorphine Scrn Not Detected Ur Oxycodone Screen Not Detected Urine Methadone Screen Positive H Urine Fentanyl Screen POSITIVE H Acetaminophen Ur Barbiturates Screen Not Detected Ur Phencyclidine Scrn Not Detected Ur Amphetamines Screen Not Detected U Benzodiazepines Scrn POSITIVE H Urine Cocaine Screen POSITIVE H U Marijuana (THC) Screen POSITIVE H Ethyl Alcohol Assessment and Plan (1) Polysubstance abuse: Status: Acute Plan 35 year old man admitted with rhabdomyolysis likely secondary to severe agitation from drug use Rhabdomyolysis Secondary to severe agitation CPK 9536, down to 5068 today Normal kidney function IV fluids Severe agitation from drug use Calmer now Negative head CT Addiction team consultation Leukocytosis No signs of infection Likely secondary to agitation and drug use DVT prophylaxis with Lovenox Full code Quality Stroke Does the patient have a stroke diagnosis?: No VTE Prior VTE?: No VTE Risk Level:: Medical - moderate - high VTE Device Contraindication: Treatment Not Indicated VTE Drug Contraindication: N/A - Med Ordered
[2025-06-27 10:37] LABS: Anion Gap 15 (12-20); Blood Urea Nitrogen 17 mg/dL (9-16); Calcium 8.3 mg/dL (8.4-10.2); Carbon Dioxide 20 mmol/L (22-29); Chloride 110 mmol/L (96-108); Creatinine Clr Calc Pharmacy 181.1; Estimated Glomerular Filt Rate > 60; Potassium 3.6 mmol/L (3.3-5.1); Sodium 141 mmol/L (135-145)
[2025-06-27 11:19] LABS: Hematocrit 38.3 % (42.0-52.0); Hemoglobin 13.2 g/dl (14.0-18.0); Imm Gran Abs Auto 0.03 X10*3/uL (0.00-0.03); Imm Gran Pct Auto 0.4 % (0.0-0.4); Lymphocytes Absolute Auto 1.2 X10*3/uL (1.2-4.9); Mean Corpuscular HGB Conc 34.5 g/dl (31.0-36.0); Mean Corpuscular Hemoglobin 30.2 pg (27.0-33.0); Mean Corpuscular Volume 87.6 fL (80.0-98.0); NRBC Abs Auto 0.000 X10*3/uL (0.0-0.012); NRBC Pct Auto 0.0 /100WBC (0.0-0.2); Platelet Count 274 X10*3/uL (160-400); Red Blood Count 4.37 X10*6/uL (4.60-5.80); White Blood Count 7.5 X10*3/uL (4.8-10.8)
[2025-06-27 12:55] LABS: MANUAL DIFF FLAG NO
--- NOTE | 2025-06-27 13:15 | PC.NURSE ---
At safety check this AM pts wrist band read as Cortez Parrish, this Nurse ask marketing secretary to retrieve a new wrist band to reflect name on his chart/ eMAR. Band was put on pt. but pt. stated that wasn't him, stated his name to be Emmett Boswell, 1990. Provider notified.
[2025-06-27 16:00] VITALS: BP 125/60; PULSE 76; RESP 16; TEMP 36.3; O2SAT 94
--- NOTE | 2025-06-27 16:13 | P.CDIM_ITS ---
PROVIDER RESPONSE TEXT: To clarify, the appropriate diagnosis supported by the clinical indicators: Toxic metabolic QUERY TEXT: PHYSICIAN'S DOCUMENTATION REQUEST Date of Query: 06/27/2025 12:24 PM EDT Patient Name: Alek Alvarez Admit Date: 06/26/2025 Dear Becca Amaya DIRECTOR SALES [employer] MARKETING, A review of the medical record indicates additional documentation may be needed. Please review below and update the documentation accordingly. Clinical Indicators: Progress note dated 06/27/25 - Review of Systems: Follow up Encephalopathy, Rhabdomyolysis. Severe agitation from drug use, altered mental status Awake and fighting, add droperidol Based on the above, please further specify, in the Progress Notes, the known or suspected type of the documented encephalopathy: Metabolic Toxic Toxic metabolic Alcoholic Other (explain) Clinically unable to determine (explain) Thank you, Dorothy Martins, CCS, CDIS Use of terms such as suspected, likely, concern for, or probable (associated with a specific diagnosis that is being evaluated, monitored, or treated as if it exists) are acceptable and can be coded in the inpatient setting, when documented at the time of discharge. Please use your independent medical judgment in providing your response. THIS QUERY IS PART OF THE PERMANENT MEDICAL RECORD
[2025-06-27] MEDS: oxyCODONE HCl Immed Release 5 MG TABLET PO (18:33)
[2025-06-27 19:00] VITALS: BP 132/83; PULSE 63; RESP 16; TEMP 36.3; O2SAT 98
[2025-06-28 03:23] VITALS: BP 133/89; PULSE 63; RESP 18; TEMP 36.2; O2SAT 96
[2025-06-28] MEDS: Lactated Ringers 1,000 ML 150 ML IVCONT ×3 (04:37→16:55)
[2025-06-28] MEDS: oxyCODONE HCl Immed Release 5 MG TABLET PO ×4 (07:03→18:21)
[2025-06-28 08:00] VITALS: BP 137/77; PULSE 62; RESP 16; TEMP 36.3; O2SAT 99
[2025-06-28 08:26] LABS: Alanine Aminotransferase 85 U/L (0-40); Albumin Level 3.6 g/dL (3.5-5.0); Alkaline Phosphatase 63 U/L (39-117); Aspartate Amino Transferase 68 U/L (5-37); Creatinine Clr Calc Pharmacy 188.5; Estimated Glomerular Filt Rate > 60; Total Protein 5.8 g/dL (6.5-8.0)
--- NOTE | 2025-06-28 09:18 | HO.PM.IMPN ---
Subjective Subjective Date of Service: 06/28/25 Review of Systems Follow up encephalopathy, rhabdomyolysis More awake and aware today Physical Exam Exam: Exam: Appearing in no acute distress lung sounds are clear to auscultation heart regular rate rhythm, clear S1, S2 positive bowel sounds, abdomen is soft, nontender neuro patient is alert x3, no focal deficits Vital Signs: Vital Signs: Last Vital Signs Temp 97.4 F 06/28/25 08:00 Pulse 62 06/28/25 08:00 Resp 16 06/28/25 08:00 BP 137/77 06/28/25 08:00 Pulse Ox 99 06/28/25 08:00 O2 Del Method Room Air 06/28/25 08:00 BMI result Body Mass Index 39.0 Objective Data Active Medications Acetaminophen (Acetaminophen 325 Mg Tablet) 650 mg PO Q6H PRN PRN Reason: Pain, Mild 1-3,fever,headache Calcium Carbonate (Calcium Carbonate 750 Mg Tab.Chew) 750 mg PO Q4H PRN PRN Reason: Heartburn Enoxaparin Sodium (Enoxaparin Sodium 40 Mg/0.4 Ml Syringe) 40 mg SUBCUT Q24H [facility] Last Admin: 06/27/25 18:34 Dose: 40 mg Documented By: JESU Lactated Ringer's (Lr) 1,000 mls @ 150 mls/hr IVCONT .Q6H40M [facility] Last Admin: 06/28/25 04:37 Dose: 150 mls/hr Documented By: STEPHANIE Lorazepam (Lorazepam 1 Mg Tablet) 1 mg PO Q8H PRN PRN Reason: anxiety/restlessness Last Admin: 06/28/25 08:56 Dose: 1 mg Documented By: CRISTO Magnesium Hydroxide (Milk Of Magnesia 30 Ml Oral.Susp) 30 ml PO DAILY PRN PRN Reason: Constipation Melatonin (Melatonin 3 Mg Tablet) 6 mg PO BEDTIME PRN PRN Reason: Insomnia Methadone HCl (Methadone Hcl 20 Mg/2 Ml Oral.Conc) 70 mg PO ONCE ONE Stop: 06/28/25 09:16 Ondansetron HCl (Ondansetron Hcl 4 Mg/2 Ml Vial) 4 mg IVPUSH Q8H PRN PRN Reason: Nausea and Vomiting Oxycodone HCl (Oxycodone Hcl Immed Release 5 Mg Tablet) 5 mg PO Q4H PRN PRN Reason: Pain, Moderate(Pain Scale 4-6) Last Admin: 06/28/25 07:03 Dose: 5 mg Documented By: CRISTO Sodium Chloride (0.9 % Sodium Chloride Flush 3 Ml Syringe) 3 ml IVFLUSH QSHIFT KW[facility]ENA Last Admin: 06/28/25 07:03 Dose: Not Given Documented By: CRISTO Non-Admin Reason: IV Running Labs 06/27/25 10:51 06/28/25 07:44 Labs: Laboratory Results - last 24 hr 06/27/25 06/27/25 06/28/25 08:48 10:51 07:44 MCV 87.6 MCH 30.2 MCHC 34.5 RDW 14.9 Plt Count 274 MPV 10.6 Immature Gran % (Auto) 0.4 Neut % (Auto) 75.3 H Lymph % (Auto) 15.5 L [place] % (Auto) 7.6 Eos % (Auto) 0.5 Baso % (Auto) 0.7 Lymph # (Auto) 1.2 [place] # (Auto) 0.6 Eos # (Auto) 0.0 Baso # (Auto) 0.1 Abs Immat Gran (auto) 0.03 Absolute Neuts (auto) 5.7 Absolute Nucleated RBC 0.000 Nucleated RBC % (auto) 0.0 Anion Gap 15 Estim Creat Clear Calc 181.1 188.5 Estimated GFR > 60 > 60 Random Glucose 98 Calcium 8.3 L D Total Bilirubin 0.4 Direct Bilirubin 0.1 AST 68 H ALT 85 H Alkaline Phosphatase 63 Total Creatine Kinase 5068 H 2339 H Total Protein 5.8 L Albumin 3.6 Assessment and Plan (1) Rhabdomyolysis: Status: Acute Plan 35 year old man admitted with rhabdomyolysis likely secondary to severe agitation from drug use Rhabdomyolysis Secondary to severe agitation CPK 9536, 5068, 2339 Normal kidney function continue IV fluids having ambulating in hallway Severe agitation from drug use. Resolved Negative head CT Addiction team consultation Leukocytosis No signs of infection Likely secondary to agitation and drug use DVT prophylaxis with Lovenox Full code Quality Stroke Does the patient have a stroke diagnosis?: No VTE Prior VTE?: No VTE Risk Level:: Medical - moderate - high VTE Device Contraindication: Treatment Not Indicated VTE Drug Contraindication: N/A - Med Ordered
[2025-06-28] MEDS: methADONE HCl 20 MG/2 ML ORAL.CONC 70 MG PO (10:41)
--- NOTE | 2025-06-28 14:33 | MHC.CM.PN ---
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 [facility] WILL NEED TRANSPORT
[2025-06-28 15:29] VITALS: BP 141/86; PULSE 77; RESP 16; TEMP 36; O2SAT 96
--- NOTE | 2025-06-28 15:34 | MHC.RECOVRN ---
TW met with pt to have EDITH completed for [facility] in order to establish OTP in the community. Pt signed EDITH and information emailed to [facility].
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
[2025-06-28 19:42] VITALS: BP 117/79; PULSE 65; RESP 17; TEMP 36.2; O2SAT 98
--- NOTE | 2025-06-28 22:28 | PC.NURSE ---
2033 pt c/o being very anxious and asking for something.Pt was medicated at 1727 with ativan 1 mg po. notified and valium 2mg po x1 ordered.
[2025-06-29 03:26] VITALS: BP 110/64; PULSE 68; RESP 19; TEMP 36; O2SAT 97
[2025-06-29 07:58] VITALS: BP 120/76; PULSE 70; RESP 18; TEMP 36.3; O2SAT 99
[2025-06-29] MEDS: oxyCODONE HCl Immed Release 5 MG TABLET PO (08:12)
[2025-06-29] MEDS: methADONE HCl 20 MG/2 ML ORAL.CONC 80 MG PO (08:13)
[2025-06-29] MEDS: 0.9 % Sodium Chloride Flush 3 ML SYRINGE IVFLUSH (08:17)
[2025-06-29 09:35] LABS: Creatinine Clr Calc Pharmacy 175.1; Estimated Glomerular Filt Rate > 60
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
[2025-06-29] MEDS: Naloxone HCl Nasal TAKE HOME 4 MG SPRAY 8 MG NOSTRILALT (10:44)
--- NOTE | 2025-06-29 10:51 | PC.NURSE ---
two doses of Narcan given to patient to bring home.
[2025-07-04 07:49] LABS: Designer Fentanyl Analogs, UR POSITIVE; Designer Opioids, UR NEGATIVE; Designer Stimulants, UR NEGATIVE; Synthetic Cannabinoids, UR NEGATIVE
[2025-07-04 07:50] LABS: Designer Benzodiazepines, UR NEGATIVE; Other Illicit Additives, UR POSITIVE
== END 2025-06-29 12:02 | disposition home or self-care (01) | DRG 812 ==
LOC: HO.ED 16:57 → HO.EDOVER 17:03 → HO.S3 19:33
PROVIDERS: Nurse Practitioner Psychiatric/Mental Health; Admitting Provider Nurse Practitioner Acute Care; Emergency Provider Emergency Medicine; Visit Provider Physician Assistant Medical
DX: T50.901A Poisoning by unspecified drugs, medicaments and biological substances, accidental (unintentional), initial encounter (principal); G92.8 Other toxic encephalopathy; M62.82 Rhabdomyolysis; F19.10 Other psychoactive substance abuse, uncomplicated; F11.20 Opioid dependence, uncomplicated; Z79.899 Other long term (current) drug therapy
CPT/HCPCS: 36415; 70450; 80048; 80076; 80143; 80179; 80307; 80346; 80352; 80354; 80364; 80371; 80375; 81001; 82550; 82565; 82803; 82947; 83735; 85025; 93005; 99285; J1200; J1650; J1790; J2250; J2359; J3360; J7120; S9485

== ENCOUNTER 2025-08-21 06:13 | Emergency (ER) | payer MEDICAID, SELFPAY ==
[2025-08-21] VITALS (7 sets, daily range): BP systolic 112–139; BP diastolic 65–90; PULSE 66–117; RESP 16–18; TEMP 36.8–37; O2SAT 96–100; BMI 33.3
--- NOTE | 2025-08-21 | ECG_ITS ---
Test Reason : FALL Blood Pressure : */* mmHG Vent. Rate : 68 BPM Atrial Rate : 68 BPM P-R Int : 130 ms QRS Dur : 82 ms QT Int : 398 ms P-R-T Axes : 66 13 34 degrees QTcB Int : 423 ms Normal sinus rhythm Normal ECG When compared with ECG of 01-May-2013 23:22, MANUAL COMPARISON REQUIRED PREVIOUS ECG IS INCOMPATIBLE Referred By: Generic ED Physician Electronically Signed By: Juvenal Mixon
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
[2025-08-21 06:43] LABS: Hematocrit 45.2 % (42.0-52.0); Hemoglobin 15.0 g/dl (14.0-18.0); Imm Gran Abs Auto 0.03 X10*3/uL (0.00-0.03); Imm Gran Pct Auto 0.3 % (0.0-0.4); Lymphocytes Absolute Auto 0.8 X10*3/uL (1.2-4.9); MANUAL DIFF FLAG NO; Mean Corpuscular HGB Conc 33.2 g/dl (31.0-36.0); Mean Corpuscular Hemoglobin 29.5 pg (27.0-33.0); Mean Corpuscular Volume 88.8 fL (80.0-98.0); NRBC Abs Auto 0.000 X10*3/uL (0.0-0.012); NRBC Pct Auto 0.0 /100WBC (0.0-0.2); Platelet Count 312 X10*3/uL (160-400); Red Blood Count 5.09 X10*6/uL (4.60-5.80); White Blood Count 9.0 X10*3/uL (4.8-10.8)
[2025-08-21 06:56] LABS: Alanine Aminotransferase 49 U/L (0-40); Albumin Level 4.6 g/dL (3.5-5.0); Alkaline Phosphatase 101 U/L (39-117); Anion Gap 15 (12-20); Aspartate Amino Transferase 41 U/L (5-37); Blood Urea Nitrogen 14 mg/dL (9-16); Calcium 9.4 mg/dL (8.4-10.2); Carbon Dioxide 20 mmol/L (22-29); Chloride 108 mmol/L (96-108); Creatinine Clr Calc Pharmacy 193.3; Estimated Glomerular Filt Rate > 60; Potassium 3.8 mmol/L (3.3-5.1); Sodium 139 mmol/L (135-145); Total Protein 7.2 g/dL (6.5-8.0)
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
--- NOTE | 2025-08-21 07:26 | PC.NURSE ---
This RN assumed care of patient @ 0700 Patient remains in C - collar Patient sleeping at this time but arousable EKG = NSR VSS and up to date Provider in to see patient Plan of care on going
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
== END 2025-08-21 18:19 | disposition home or self-care (01) ==
PROVIDERS: Emergency Provider Emergency Medicine
DX: Z04.1 Encounter for examination and observation following transport accident (principal); R51.9 Headache, unspecified; M54.2 Cervicalgia; F19.90 Other psychoactive substance use, unspecified, uncomplicated; Z88.0 Allergy status to penicillin; Z88.6 Allergy status to analgesic agent
CPT/HCPCS: 36415; 70450; 72125; 80053; 80307; 85025; 93005; 99284; 99285

== ENCOUNTER → 2025-08-21 06:28 | Outpatient (BNV) | payer MEDICAID, SELFPAY | PROVIDERS: Emergency Provider Emergency Medicine; Visit Provider Internal Medicine Cardiovascular Disease | DX: Z04.3 Encounter for examination and observation following other accident (principal) | CPT/HCPCS: 93010 ==

== ENCOUNTER → 2025-08-21 07:27 | Outpatient (BNV) | payer MEDICAID, SELFPAY | PROVIDERS: Emergency Provider Emergency Medicine; Visit Provider Specialist | DX: M54.2 Cervicalgia (principal); S09.90XA Unspecified injury of head, initial encounter | CPT/HCPCS: 70450; 72125 ==